=== PATIENT | male | born 1980 | race Caucasian/White ===

== ENCOUNTER → 2017-11-12 | Outpatient (CLI) | payer OTHER ==
[~2017-11-12] MED LIST: CRUTCH4 USE; CYCL10 PO; HYDACE5 PO; IBUP800 PO; LISI20 PO; MELO7.5 PO; NAPR550 PO; Norco 5-325 Ta1 EACH PO; PENVK500 PO; RXNAPNA550 PO; TESTOSTERO
== END | disposition home or self-care (01) ==
LOC: LAB EV 12:48
DX: R10.9 Unspecified abdominal pain (principal)
CPT/HCPCS: 87086

== ENCOUNTER 2020-02-18 09:37 | Emergency (ER) | payer OTHER ==
[~2020-02-18] VITALS: Ht 167.6 cm; Wt 93.0 kg
[2020-02-18] MEDS ORDERED: ACETAMINOPHEN500 MG PO (09:58)
[2020-02-18] MEDS ORDERED: KETO10 PO (09:58)
[2020-02-18] MEDS ORDERED: Cyclobenzaprine5 MG PO (09:58)
== END 2020-02-18 10:50 | disposition home or self-care (01) ==
LOC: ER 09:37
DX: M54.6 Pain in thoracic spine (principal); M54.5 Low back pain; I10 Essential (primary) hypertension; Z79.899 Other long term (current) drug therapy; Z87.891 Personal history of nicotine dependence
CPT/HCPCS: 96372; 99283-25; J1885

== ENCOUNTER 2020-07-28 15:51 | Emergency (ER) | payer OTHER ==
[~2020-07-28] VITALS: Ht 170.2 cm; Wt 97.5 kg
[~2020-07-28 15:51] MED LIST changes: +ACETAMINOPHEN500 MG PO; +Cyclobenzaprine5 MG PO; +KETO10 PO
== END 2020-07-28 18:40 | disposition home or self-care (01) ==
LOC: ER 15:51
DX: S33.5XXA Sprain of ligaments of lumbar spine, initial encounter (principal); I10 Essential (primary) hypertension; Z87.891 Personal history of nicotine dependence; Z79.899 Other long term (current) drug therapy; X58.XXXA Exposure to other specified factors, initial encounter
CPT/HCPCS: 96372; 99283-25; J1170; J1885

== ENCOUNTER → 2022-01-20 | Outpatient (CLI) | payer OTHER ==
[2022-01-20 10:46] LABS: BASOPHILS ABSOLUTE AUTO 0.09 K/mm3 (0.00-0.23); BASOPHILS PERCENT AUTO 1 % (0-2); EOSINOPHILS ABSOLUTE AUTO 0.02 K/mm3 (0.00-0.68); EOSINOPHILS PERCENT AUTO 0 % (0-6); Hematocrit 44.5 % (37.0-53.0); Hemoglobin 15.9 g/dL (13.5-17.5); IMMATURE GRAN ABSOLUTE AUTO 0.07 K/mm3 (0.00-0.10); IMMATURE GRAN PERCENT AUTO 1 % (0-1); LYMPHOCYTES ABSOLUTE AUTO 1.39 K/mm3 (0.84-5.20); LYMPHOCYTES PERCENT AUTO 12 % (21-46); MONOCYTES ABSOLUTE AUTO 1.53 K/mm3 (0.16-1.47); MONOCYTES PERCENT AUTO 14 % (4-13); Mean Corpuscular HGB 33.8 pg (26.0-34.0); Mean Corpuscular HGB Conc 35.7 g/dL (31.5-36.5); Mean Corpuscular Volume 95 fL (80-100); Mean Platelet Volume 8.2 fL (9.1-12.4); NEUTROPHILS ABSOLUTE AUTO 8.14 K/mm3 (1.96-9.15); NEUTROPHILS PERCENT AUTO 72 % (41-73); Platelet Count 187 K/mm3 (150-400); RDW Standard Deviation 42.1 fL (35.1-46.3); Red Blood Cell Count 4.71 M/mm3 (4.30-5.90); White Blood Cell Count 11.24 K/mm3 (4.00-11.30)
[2022-01-20 10:51] LABS: Anion Gap 10 mmol/L (6-16); Blood Urea Nitrogen 4 mg/dL (8-24); Bun/Creatinine Ratio 3.5 (12.0-20.0); CO2, Blood 29 mmol/L (21-32); Chloride, Blood 93 mmol/L (98-108); Creatinine, Blood 1.13 mg/dL (0.60-1.20); Glomerular Filtration Rate >60 (60-); Glucose, Blood 122 mg/dL (70-99); Potassium, Blood 3.9 mmol/L (3.5-5.5); Sodium, Blood 132 mmol/L (136-145)
== END | disposition home or self-care (01) ==
LOC: LAB SHORT 10:40 → LAB 10:40
PROVIDERS: Physician Assistant Surgical
DX: R07.9 Chest pain, unspecified (principal)
CPT/HCPCS: 80048; 84484; 85025; 85379

== ENCOUNTER 2023-01-02 18:34 | Emergency (ER) | payer OTHER ==
[~2023-01-02] VITALS: Ht 170.2 cm; Wt 111.1 kg
[2023-01-02] MEDS ORDERED: PERCOCET 10-321 EA10 PO (21:50)
[2023-01-02] MEDS ORDERED: ONDA4ODT MM (21:50)
== END 2023-01-02 21:58 | disposition home or self-care (01) ==
LOC: ER 18:34
DX: M25.521 Pain in right elbow (principal); I10 Essential (primary) hypertension; F17.290 Nicotine dependence, other tobacco product, uncomplicated; Z96.642 Presence of left artificial hip joint; Z79.899 Other long term (current) drug therapy; X50.0XXA Overexertion from strenuous movement or load, initial encounter
CPT/HCPCS: 73080; 76882; J1170

== ENCOUNTER 2023-01-13 08:30 | Day surgery (SDC) | payer OTHER ==
[~2023-01-13] VITALS: Ht 170.2 cm; Wt 104.3 kg
[~2023-01-13 08:30] MED LIST changes: +ONDA4ODT MM; +PERCOCET 10-321 EA10 PO
== END 2023-01-13 13:30 | disposition home or self-care (01) ==
LOC: ORSCSDS 08:30
PROVIDERS: Orthopaedic Surgery
PROC: 0LM30ZZ Reattachment of Right Upper Arm Tendon, Open Approach (ICD-10-PCS; principal; 2023-01-13 09:45)
DX: S46.211A Strain of muscle, fascia and tendon of other parts of biceps, right arm, initial encounter (principal); Z87.891 Personal history of nicotine dependence; I10 Essential (primary) hypertension; E66.9 Obesity, unspecified; Z68.36 Body mass index [BMI] 36.0-36.9, adult; Z79.899 Other long term (current) drug therapy
CPT/HCPCS: A9270; C1713; J0171; J0690; J1100; J1885; J2250; J2405; J2704; J2795; J3010; J7120

== ENCOUNTER 2023-07-26 17:46 | Emergency (ER) | payer OTHER ==
[~2023-07-26] VITALS: Ht 170.2 cm; Wt 108.9 kg
[2023-07-26 18:13] LABS: BASOPHILS PERCENT AUTO 1 % (0-2); EOSINOPHILS PERCENT AUTO 1 % (0-6); Hematocrit 41.6 % (37.0-53.0); IMMATURE GRAN ABSOLUTE AUTO 0.05 K/mm3 (0.00-0.10); IMMATURE GRAN PERCENT AUTO 1 % (0-1); LYMPHOCYTES ABSOLUTE AUTO 3.76 K/mm3 (0.84-5.20); LYMPHOCYTES PERCENT AUTO 39 % (21-46); MONOCYTES ABSOLUTE AUTO 0.78 K/mm3 (0.16-1.47); MONOCYTES PERCENT AUTO 8 % (4-13); Mean Corpuscular HGB 34.2 pg (26.0-34.0); Mean Corpuscular HGB Conc 36.1 g/dL (31.5-36.5); Mean Corpuscular Volume 95 fL (80-100); Mean Platelet Volume 8.5 fL (9.1-12.4); NEUTROPHILS ABSOLUTE AUTO 4.75 K/mm3 (1.96-9.15); NEUTROPHILS PERCENT AUTO 50 % (41-73); Platelet Count 315 K/mm3 (150-400); RDW Coefficient Variation 11.7 % (11.7-14.2); RDW Standard Deviation 41.1 fL (35.1-46.3); Red Blood Cell Count 4.38 M/mm3 (4.30-5.90); White Blood Cell Count 9.54 K/mm3 (4.00-11.30)
[2023-07-26 18:41] LABS: Albumin, Blood 3.5 g/dL (3.4-5.0); Bilirubin, Total 0.4 mg/dL (0.1-1.0); Bun/Creatinine Ratio 5.7 (12.0-20.0); Calcium, Blood 8.2 mg/dL (8.5-10.1); Creatinine, Blood 1.76 mg/dL (0.60-1.20); Globulin, Blood 3.4 g/dL (2.2-4.0); Potassium, Blood 3.3 mmol/L (3.5-5.5); Total Protein, Blood 6.9 g/dL (6.4-8.2)
[2023-07-26 20:47] VITALS: BP 153/99
[2023-07-26] MEDS ORDERED: Percocet 5-3251 EACH PO (20:58)
[2023-07-26] MEDS ORDERED: CEPH500 PO (20:58)
== END 2023-07-26 21:08 | disposition home or self-care (01) ==
LOC: ER 17:46
PROVIDERS: Emergency Medicine
DX: S66.821A Laceration of other specified muscles, fascia and tendons at wrist and hand level, right hand, initial encounter (principal); S61.511A Laceration without foreign body of right wrist, initial encounter; S80.02XA Contusion of left knee, initial encounter; R07.9 Chest pain, unspecified; W11.XXXA Fall on and from ladder, initial encounter; R09.02 Hypoxemia; I10 Essential (primary) hypertension; F17.290 Nicotine dependence, other tobacco product, uncomplicated
CPT/HCPCS: 12004; 71046; 73090; 73562-LT; 80053; 85025; 93005; 93010; 96365-59; 96375-59; 99284-25; A9270; J0690; J1885; J2270; J2405

== ENCOUNTER 2023-11-12 13:18 | Emergency (ER) | payer OTHER ==
[~2023-11-12] VITALS: Ht 167.6 cm; Wt 99.8 kg
[~2023-11-12 13:18] MED LIST changes: +CEPH500 PO; +Percocet 5-3251 EACH PO
[2023-11-12 13:38] VITALS: BP 184/141
[2023-11-12] MEDS ORDERED: Norco 5-325 Ta1 EACH PO (14:48)
== END 2023-11-12 15:00 | disposition home or self-care (01) ==
LOC: ER 13:18
DX: M25.522 Pain in left elbow (principal); Z87.891 Personal history of nicotine dependence
CPT/HCPCS: 76882; 99284-25; A9270

== ENCOUNTER 2025-03-14 12:24 | Day surgery (SDC) | payer OTHER ==
[~2025-03-14] VITALS: Ht 167.6 cm; Wt 110.8 kg
[~2025-03-14 12:24] MED LIST changes: +Flagyl500 MG PO; +HYDR10 PO; +K-Dur20 MEQ PO; +Lactated Ringer's 1,000 ML IV ONE; +OXYCODONE-ACET1 EA13 PO; +ROSUVASTATIN CAL5 MG PO; +ZESTRIL40 M2 PO; +ZOLOFT50 MG PO
[2025-03-14] MEDS ORDERED: COQ-10100 MG (12:34)
[2025-03-14] MEDS ORDERED: SERTRALINE HCL50 MG (12:44)
[2025-03-14] MEDS ORDERED: Lactated Ringer's 1,000 ML IV ONE (12:44)
[2025-03-14] MEDS ORDERED: OMEP20ER (12:45)
[2025-03-14] MEDS ORDERED: propofoL 50 ML IV ONE ×2 (12:56→13:17)
[2025-03-14 14:05] VITALS: BP 123/89
== END 2025-03-14 14:03 | disposition home or self-care (01) ==
LOC: ORSCSDS 12:24
PROVIDERS: Internal Medicine Gastroenterology
PROC: 0DJD8ZZ Inspection of Lower Intestinal Tract, Via Natural or Artificial Opening Endoscopic (ICD-10-PCS; principal; 2025-03-14 14:00)
PROC: 0DJ08ZZ Inspection of Upper Intestinal Tract, Via Natural or Artificial Opening Endoscopic (ICD-10-PCS; principal; 2025-03-14 14:00)
DX: R19.4 Change in bowel habit (principal); R10.13 Epigastric pain; R10.9 Unspecified abdominal pain; R11.2 Nausea with vomiting, unspecified; R04.2 Hemoptysis; R79.89 Other specified abnormal findings of blood chemistry; E88.89 Other specified metabolic disorders; F10.20 Alcohol dependence, uncomplicated; K57.30 Diverticulosis of large intestine without perforation or abscess without bleeding; K21.9 Gastro-esophageal reflux disease without esophagitis; I10 Essential (primary) hypertension; Z79.899 Other long term (current) drug therapy
CPT/HCPCS: J2704; J7120